=== PATIENT | female | born 1965 ===

== ENCOUNTER 2021-05-31 05:57 | Day surgery (SDC) | payer OTHER ==
[~2021-05-31 05:57] MED LIST: ATORVASTATIN CA10 MG PO; CARAFATE1 GM PO; CLONAZEP PO; GABAPENT PO; GLIPIZIDE XL5 MG PO; JANUMET 50-5001 EACH PO; NEXIUM40 M1 PO; RESTORIL30 M1 PO; ROCALTROL0.25 MCG PO; SEROQUEL XR300 MG PO; SINGULAIR10 MG PO; SYNTHROID112 MCG PO; TOPROL XL50 M1 PO; WELLBUTRIN XL300 MG PO; ZYLOPRIM100 M1 PO
[2021-05-31] MEDS ORDERED: ULTRACET PO (10:10)
== END 2021-05-31 12:00 | disposition home or self-care (01) ==
LOC: CIR.AMB 05:57
PROVIDERS: ATTEND Surgery
DX: N82.3 Fistula of vagina to large intestine (principal); R15.9 Full incontinence of feces; K62.89 Other specified diseases of anus and rectum; I10 Essential (primary) hypertension; E78.5 Hyperlipidemia, unspecified; G47.33 Obstructive sleep apnea (adult) (pediatric); F41.9 Anxiety disorder, unspecified; Z85.850 Personal history of malignant neoplasm of thyroid; M19.90 Unspecified osteoarthritis, unspecified site
CPT/HCPCS: 64561; L8679

== ENCOUNTER 2021-06-14 06:14 | Day surgery (SDC) | payer OTHER ==
[~2021-06-14 06:14] MED LIST changes: +ULTRACET PO
[2021-06-14] MEDS ORDERED: ULTRACET PO (12:12)
== END 2021-06-14 13:25 | disposition home or self-care (01) ==
LOC: CIR.AMB 06:14
PROVIDERS: ATTEND Surgery
DX: R15.9 Full incontinence of feces (principal); N82.3 Fistula of vagina to large intestine; K62.89 Other specified diseases of anus and rectum; I10 Essential (primary) hypertension; E78.5 Hyperlipidemia, unspecified; G47.33 Obstructive sleep apnea (adult) (pediatric); Z99.89 Dependence on other enabling machines and devices; E11.9 Type 2 diabetes mellitus without complications; F41.9 Anxiety disorder, unspecified; E66.01 Morbid (severe) obesity due to excess calories; E83.51 Hypocalcemia; Z20.822 Contact with and (suspected) exposure to COVID-19

== ENCOUNTER 2021-06-21 14:30 | Emergency (ER) | payer OTHER ==
[~2021-06-21] VITALS: Ht 160 cm; Wt 101.2 kg
== END 2021-06-21 16:43 | disposition home or self-care (01) ==
LOC: ER 14:30
DX: L76.22 Postprocedural hemorrhage of skin and subcutaneous tissue following other procedure (principal)

== ENCOUNTER 2021-07-30 09:09 | Inpatient (IN) | payer OTHER ==
[~2021-07-30] VITALS: Ht 160 cm; Wt 99.8 kg
--- NOTE | 2021-07-30 09:21 | NUR ---
SE RECIBE PACIENTE MASCULINO ALERTA Y ORIENTADA EN LAS DENITA ESFERAS LA CUAL REFIERE PRESENTAR PROBLEMAS CON ESTIMULADOR DE ESFINTER. SE OBSEVA ESTIMULADOR FUERA DE LA PIEL. SE UBICA PACIENTE EN OBSERVACION. PACIENTE DE DR LILLI ARMANDO.
[2021-07-31] MEDS ORDERED: BACTRIM 400-801 EACH PO (07:56)
[2021-07-31] MEDS ORDERED: PERCOCET 5-3251 EACH PO (07:56)
== END 2021-07-31 14:02 | disposition home or self-care (01) | DRG 30 ==
LOC: ER 09:09 → O/R 11:09 → SEC-K 11:09 → O/R 15:00 → SURG 21:49
PROVIDERS: ADMIT Surgery; ATTEND Surgery
PROC: 0JPT0MZ Removal of Stimulator Generator from Trunk Subcutaneous Tissue and Fascia, Open Approach (ICD-10-PCS; 2021-07-30)
PROC: 00PV0MZ Removal of Neurostimulator Lead from Spinal Cord, Open Approach (ICD-10-PCS; principal; 2021-07-30 16:15)
DX: T85.193A Other mechanical complication of implanted electronic neurostimulator, generator, initial encounter (principal); Z20.822 Contact with and (suspected) exposure to COVID-19

== ENCOUNTER 2021-08-09 09:34 | Day surgery (SDC) | payer OTHER ==
[~2021-08-09 09:34] MED LIST changes: +BACTRIM 400-801 EACH PO; +PERCOCET 5-3251 EACH PO
[2021-08-09] MEDS ORDERED: ULTRACET PO (15:50)
== END 2021-08-09 18:50 | disposition home or self-care (01) ==
LOC: CIR.AMB 09:34
PROVIDERS: ATTEND Surgery
DX: N82.3 Fistula of vagina to large intestine (principal); K62.89 Other specified diseases of anus and rectum; R15.9 Full incontinence of feces; I10 Essential (primary) hypertension; G47.33 Obstructive sleep apnea (adult) (pediatric); Z99.89 Dependence on other enabling machines and devices; E03.9 Hypothyroidism, unspecified; F32.9 Major depressive disorder, single episode, unspecified; K21.9 Gastro-esophageal reflux disease without esophagitis; M51.36 Other intervertebral disc degeneration, lumbar region; E66.9 Obesity, unspecified; Z79.82 Long term (current) use of aspirin; E11.9 Type 2 diabetes mellitus without complications; Z20.822 Contact with and (suspected) exposure to COVID-19
CPT/HCPCS: 64581; 95972; C1778